=== PATIENT | male | born 1955 ===

== ENCOUNTER 2020-09-24 05:30 | Day surgery (SDC) | payer OTHER ==
[~2020-09-24 05:30] MED LIST: ELIQUIS5 M1 PO; NORVASC5 MG PO; OMEGA-31000 MG PO; TOPROL XL100 M1 PO; TRILIPIX45 MG PO; ZESTORETIC 20-1 EACH PO; ZOCOR20 MG PO
== END 2020-09-24 09:50 | disposition home or self-care (01) ==
LOC: CIR.AMB 05:30
PROVIDERS: ATTEND Surgery Surgery of the Hand
DX: M65.842 Other synovitis and tenosynovitis, left hand (principal); Z20.828 Contact with and (suspected) exposure to other viral communicable diseases